=== PATIENT | female | born 1960 | race African-American/Black ===

== ENCOUNTER 2018-06-01 14:56 | Emergency (ER) | payer MEDICAID, OTHER ==
[~2018-06-01] VITALS: Ht 165.1 cm; Wt 77.1 kg
[2018-06-01] MEDS ORDERED: MELO7.5T29 PO (15:29)
[2018-06-01] MEDS ORDERED: PROM12.58 PO (15:29)
[2018-06-01] MEDS ORDERED: ONDANSETRON ODT 4 MG TAB.RAPDIS. PO ONE (15:30)
[2018-06-01] MEDS ORDERED: CYCLOBENZAPRINE 10 MG TABLET. PO ONE (15:30)
[2018-06-01] MEDS ORDERED: KETOROLAC 30 MG/ML VIAL. IM ONE (15:30)
--- NOTE | 2018-06-01 15:30 | PHYS DOC ---
Past Medical History Past Medical History: GERD, High Cholesterol, Hypertension, Other Additional Past Medical Histor: BILAT KNEE PAIN,GENERALIZED PAIN Past Surgical History: Hysterectomy Alcohol Use: None Drug Use: None Adult General Chief Complaint Chief Complaint: DIZZY/LIGHT HEADED HPI HPI Patient is a 58 year old F who arrives to ER today stating she is lightheaded, dizzy and nauseated because she has been without her pain medications since Tuesday (3 days ago). She states she takes Oxycodone 30mg BID and Hydrocodone 5' s for breakthrough for chronic pain in her knees. She is from [place] and states she took the [employer] bus here to visit family and she left her suitcase on the bus. She states she has been without her medications since Tuesday morning, but she called her PCP back in [place] who called her in her blood pressure medicine but couldn't call in the narcotics. Pt states she has been nauseated and having lots of pain in her back and B knees. This pain is not new but chronic. She denies chest pain or SOB. Her vitals are monitored while I was in the room and are stable with no obvious tachycardia or hyper or hypotension and she appears well with no obvious tremor or diophoresis. Discussed that withdrawal symptoms are not fun, but that this many days out should be starting to subside to some degree but we can help her with the symptoms. Review of Systems Review of Systems Constitutional: Denies fever or chills Respiratory: Denies cough or shortness of breath Cardiovascular: Denies chest pain GI: Denies abdominal pain. Reports nausea. : Denies dysuria or hematuria Musculoskeletal: Reports back pain and B knee pain Integument: Denies rash or skin lesions Neurologic: Denies headache, focal weakness or sensory changes. Reports dizziness. All other systems were reviewed and found to be within normal limits, except as documented in this note. Current Medications Current Medications Current Medications Medications (Trade) Dose Ordered Sig/Milagros Start Time Stop Time Status Last Admin Dose Admin Acetaminophen/ Hydrocodone Bitart (Lortab 10/325) 1 tab 1X ONCE 06/01/18 17:00 06/01/18 17:02 DC 06/01/18 17:05 1 TAB Cyclobenzaprine HCl (Flexeril) 10 mg 1X ONCE 06/01/18 15:30 06/01/18 15:31 DC 06/01/18 15:33 10 MG Ketorolac Tromethamine (Toradol 30mg Vial) 30 mg 1X ONCE 06/01/18 15:30 06/01/18 15:31 DC 06/01/18 15:34 30 MG Ondansetron HCl (Zofran Odt) 4 mg 1X ONCE 06/01/18 15:30 06/01/18 15:31 DC 06/01/18 15:33 4 MG Promethazine HCl (Phenergan) 12.5 mg 1X ONCE 06/01/18 17:00 06/01/18 17:02 DC 06/01/18 17:05 12.5 MG Allergies Allergies Allergies Coded Allergies Type Severity Reaction Last Updated Verified No Known Drug Allergies 06/01/18 No Physical Exam Physical Exam Constitutional: Well developed, well nourished, no acute distress, non-toxic appearance. Neck: Normal range of motion, no tenderness, supple, no stridor. Cardiovascular:Heart rate regular rhythm, no murmur Lungs & Thorax: Bilateral breath sounds clear to auscultation Abdomen: Bowel sounds normal, soft, no tenderness, no masses, no pulsatile masses. Skin: Warm, dry, no erythema, no rash. Back: Tender lumbar perispinous region. Extremities: B knee pain with palpation and gait. Neurologic: Alert and oriented X 3, normal motor function, normal sensory function, no focal deficits noted. Psychologic: Affect normal, judgement normal, mood normal. Current Patient Data Vital Signs Vital Signs Date Time Temp Pulse Resp B/P (MAP) Pulse Ox O2 Delivery O2 Flow Rate FiO2 06/01/18 16:00 64 97 06/01/18 15:09 99.1 18 126/69 (88) Room Air 99.1 EKG EKG [] Radiology/Procedures Radiology/Procedures [] Course & Med Decision Making Course & Med Decision Making Pertinent Labs and Imaging studies reviewed. (See chart for details) Pt hoping for us to refill her Oxycontin. I explained that the ER cannot refill or fill lost narcotics and that I would be glad to treat her pain with a prescription for a non-narcotic and help her with her nausea but she needs to see her doctor. She states she is planning to get back on the bus and go home so she can see her doctor. Pt continues to have normal vitals and appears nontoxic. She is ambulatory around room and out of ER without difficulty. Neto Disclaimer [place] Disclaimer This electronic medical record was generated, in whole or in part, using a voice recognition dictation system. Departure Departure Impression: Primary Impression: Chronic pain Disposition: 01 HOME, SELF-CARE Condition: STABLE Referrals: NO PCP (PCP) Patient Instructions: Knee Pain, [id number], Nausea, Adult Additional Instructions: This ER has a policy that we do not fill or refill narcotic pain medication. We can help you with the symptoms but you will need to see your doctor for future refills. Scripts Meloxicam (MELOXICAM) 7.5 Mg Tablet 1 TAB PO DAILY PRN for PAIN, #14 TAB 2 Refills Prov: EVELYN TRIPP 06/01/18 Promethazine Hcl (PROMETHAZINE HCL) 12.5 Mg Tablet 1 TAB PO Q6HRS PRN for NAUSEA/VOMITING, #12 TAB Prov: EVELYN TRIPP 06/01/18 EVELYN TRIPP Jun 01, 2018 15:30
[2018-06-01 16:00] VITALS: BP 123/61
[2018-06-01] MEDS ORDERED: PROMETHAZINE 12.5 MG TABLET. PO ONE (17:00)
[2018-06-01] MEDS ORDERED: HYDROcodone/APAP 10/325 1 TAB TABLET PO ONE (17:00)
== END 2018-06-01 17:10 | disposition home or self-care (01) ==
LOC: ER 14:56
DX: G89.29 Other chronic pain (principal); M25.561 Pain in right knee; M25.562 Pain in left knee; M54.9 Dorsalgia, unspecified; R42 Dizziness and giddiness; E78.00 Pure hypercholesterolemia, unspecified; I10 Essential (primary) hypertension; K21.9 Gastro-esophageal reflux disease without esophagitis
CPT/HCPCS: 96372; 99284; J1885; Q0162; Q0169